=== PATIENT | male | born 1975 | race African-American/Black ===

== ENCOUNTER 2023-11-01 19:26 | Emergency (ER) | payer MEDICAID ==
[~2023-11-01] VITALS: Ht 175.3 cm; Wt 70.0 kg
[2023-11-01 19:51] VITALS: O2SAT 98
[2023-11-01] MEDS ORDERED: P50 MT (20:01)
[2023-11-01] MEDS ORDERED: FAMO20TA8 MT (20:01)
[2023-11-01] MEDS ORDERED: DIPH25TA62 MT (20:01)
[2023-11-01 20:26] VITALS: BP 129/70; PULSE 90; RESP 18; TEMP 98
== END 2023-11-01 20:26 | disposition home or self-care (01) ==
LOC: EDBD 19:26 → ER 19:26
DX: T78.40XA Allergy, unspecified, initial encounter (principal); X58.XXXA Exposure to other specified factors, initial encounter
CPT/HCPCS: 99283